=== PATIENT | female | born 1990 | race Caucasian/White ===

== ENCOUNTER 2023-01-28 09:36 | Emergency (ER) | payer OTHER ==
[2023-01-28 10:03] VITALS: BP 126/87; PULSE 115; RESP 16; TEMP 98.2; BMI 29.2
== END 2023-01-28 11:59 | disposition home or self-care (01) ==
LOC: JER 09:36
DX: O9A.211 Injury, poisoning and certain other consequences of external causes complicating pregnancy, first trimester (principal); V43.02XA Car driver injured in collision with other type car in nontraffic accident, initial encounter; Y93.I9 Activity, other involving external motion; Y92.410 Unspecified street and highway as the place of occurrence of the external cause; Z3A.09 9 weeks gestation of pregnancy
CPT/HCPCS: 76817-TC; 99284-25